=== PATIENT | female | born 1960 | race Caucasian/White ===

== ENCOUNTER 2022-04-07 12:40 | Emergency (ER) | payer OTHER, SELFPAY ==
[2022-04-07] VITALS (14 sets, daily range): BP systolic 115–139; BP diastolic 77–89; PULSE 69–89; RESP 14–20; TEMP 36.3; O2SAT 96–100
--- NOTE | ~2022-04-07 | XR_ITS ---
EXAMINATION: XR chest 2V DATE: 04/07/2022 16:07 INDICATION: Back pain and 4 days of fever TECHNIQUE: PA and lateral views of the chest were obtained. COMPARISON: None FINDINGS: The lungs are clear with no focal airspace opacities, pulmonary edema, pleural effusion or pneumothor ax. The cardiomediastinal silhouette is normal. The thoracic kyphosis with minimal anterior wedging o f a couple mid thoracic vertebral bodies and mild to moderate spondylosis. IMPRESSION: 1. No acute cardiopulmonary disease. Reviewed, dictated and finalized at location A.
--- NOTE | ~2022-04-07 | US_ITS ---
US abdomen limited DATE: 04/07/2022 14:18 INDICATION: Right upper quadrant abdominal pain, nausea, fever TECHNIQUE: Real-time imaging of liver, pancreas, gallbladder COMPARISON: None FINDINGS: There is an approximately 1.2 x 1.7 cm hepatic cyst. No other hepatic space-occupying mass lesion is evident. Normal hepatopedal portal venous flow direction. There are multiple up to approximately 5 mm gallbladder wall polyps no gallbladder wall thickening, g allstones or pericholecystic fluid collection. Negative sonographic Mcfadden's sign. The common bile duct measures 4 mm, normal. No pancreatic mass lesion or ductal dilatation. IMPRESSION: Multiple 5 mm or smaller gallbladder polyps. Consider 6 month follow-up gallbladder ultra sound examination Reviewed, dictated and finalized at [facility]. Reviewed, dictated and finalized at location B. IMPRESSION: Multiple 5 mm or smaller gallbladder polyps. Consider 6 month follo w-up gallbladder ultrasound examination
--- NOTE | 2022-04-07 12:58 | ED.GENADULT ---
HPI - General Adult General Chief complaint: Unspecified Stated complaint: sick since Sunday, fever, upper abd pain Time Seen by Provider: 04/07/22 12:49 History of Present Illness HPI narrative: Patient is a 61-year-old female here for evaluation of right upper abdominal pain for the past 3 days. She states the pain is intermittent in nature, without obvious triggers. She states that she also feels the pain occasionally in her right back. She reports fevers up to 102 at home, but she has not taken any medication for this. Also reports nausea, but no vomiting. No diarrhea, constipation, blood in her stool, chest pain, shortness of breath. No diaphoresis. She has a history of a hysterectomy and 3 C-sections. Related Data Allergies Allergy/AdvReac Type Severity Reaction Status Date / Time ampicillin Allergy Vomiting Verified 04/07/22 13:36 Review of Systems Review of Systems: Gen.: Reports fevers. Eyes: Denies eye pain or visual change ENT: Denies congestion Respiratory: Denies shortness of breath or cough CV: Denies chest pain or palpitations GI: Reports abdominal pain, nausea. Denies emesis or diarrhea denies burning, urgency, frequency or hematuria Musculoskeletal: Denies back pain or muscle pain Neuro: Denies numbness, tingling, weakness or focal weakness Skin: Denies rash Except as documented, all other systems reviewed and negative Exam Narrative: APPEARANCE: Well appearing, no pain in distress, well-nourished. Head: Normocephalic and atraumatic. EYES: PERRLA/EOMI, conjunctivae clear NOSE: No nasal drainage EARS: External ear normal in appearance THROAT: Oropharynx is clear. Mucous membranes are moist. NECK: Supple. No adenopathy, no masses. RESPIRATORY: Airway patent, respirations nonlabored. Clear to auscultation bilaterally, no rales, rhonchi, wheezing. CARDIOVASCULAR: Regular rate and rhythm without murmurs, rubs, or gallops. ABDOMINAL: Tender to palpation in right upper quadrant. Normoactive bowel sounds. Soft, nondistended. No rebound tenderness or guarding. MUSCULOSKELETAL: Extremities are warm and well-perfused. Moves all extremities well. No edema. NEURO: Normal speech. No focal neurologic deficits. SKIN: Skin is warm and dry. No rashes. PSYCHIATRIC: Normal affect/mood.. Course Vital Signs Vital signs: Vital Signs Temperature 97.4 F L 04/07/22 12:43 Pulse Rate 89 04/07/22 12:43 Respiratory Rate 20 04/07/22 12:43 Blood Pressure 120/79 04/07/22 12:43 Pulse Oximetry 100 04/07/22 12:43 Oxygen Delivery Room Air 04/07/22 12:43 Temperature 97.4 F L 04/07/22 12:43 Pulse Rate 69 04/07/22 17:05 Respiratory Rate 14 04/07/22 17:05 Blood Pressure 139/89 04/07/22 17:05 Pulse Oximetry 98 04/07/22 17:05 Oxygen Delivery Room Air 04/07/22 12:43 Medical Decision Making MDM Narrative Medical decision making narrative: 61-year-old female here for evaluation of right upper abdominal/back pain for the past several days associated with some nausea. Here she is nontoxic-appearing with normal vital signs, reported fever at home but patient has been afebrile today without intervention. She was slightly tender in the right upper quadrant; ultrasound reveals multiple small polyps but no cholecystitis or gallstones. Basic labs unremarkable; normal lipase, normal LFTs, white count of 4.4. Urinalysis negative. Obtained a chest x-ray to rule out pneumonia which was also negative. Suspect that the small gallbladder polyps may be causing her pain. On reevaluation her abdomen is soft and nontender. Radiology report recommended follow-up in 6 months, which I feel is reasonable as done by her PCP. She was given return precautions and she voiced understanding. Vital Signs Vital Signs: Vital Signs Temperature 97.4 F L 04/07/22 12:43 Pulse Rate 89 04/07/22 12:43 Respiratory Rate 20 04/07/22 12:43 Blood Pressure 120/79 04/07/22 12:43 Pulse Oximetry 100 04/07/22 12:4
[2022-04-07 13:28] LABS: Basophils Percent Auto 0.2 % (0.2-1.2); Eosinophils Absolute Auto 0.1 K/mm3 (0-0.3); Eosinophils Percent Auto 1.6 % (0-4.4); Hematocrit 41.3 % (37.0-47.0); Hemoglobin 13.8 g/dL (12.0-15.0); Immature Granulocyte Absolute 0.01 K/mm3 (0.00-0.031); Immature Granulocyte Percent A 0.2 % (0-0.5); Lymphocytes Absolute Auto 1.16 K/mm3 (0.9-3.2); Lymphocytes Percent Auto 26.6 % (18.3-44.2); Mean Corpuscular HGB Conc 33.4 g/dl (32-36); Mean Corpuscular Hemoglobin 31.1 pg (26-34); Mean Platelet Volume 10.4 fl (7.4-10.4); Monocytes Absolute Auto 0.7 K/mm3 (0.1-0.6); Monocytes Percent Auto 16.7 % (2.6-8.5); Neutrophils Absolute Auto 2.4 K/mm3 (1.3-6.7); Neutrophils Percent Auto 54.7 % (45.5-73.1); Platelet Count Result 194 k/mm3 (150-375); Red Blood Count 4.44 M/mm3 (4.2-5.4); Red Cell Distribution Width 12.8 % (11.5-14.5); White Blood Count 4.4 K/mm3 (4.5-10.0)
[2022-04-07 13:29] LABS: Appearance Urine Clear (Clear); Bilirubin Urine Negative (Negative); Color Urine Yellow (Yellow); Glucose Urine UA Negative (Negative); Ketones Urine Negative (Negative); Leukocyte Esterase Ur Negative LEU/UL (Negative); Nitrate Urine Negative (Negative); Protein Urine Negative (Negative); Specific Grav Ur >= 1.030 (1.001-1.035); Urobilinogen Urine 0.2 mg/dL (<2.0); pH Urine 5.5 (5.0-9.0)
[2022-04-07] MEDS: SODIUM CHLORIDE 0.9% IV 1,000 ML 999 ML IV CONT (13:30)
[2022-04-07 13:31] LABS: Add Urine Microscopic? YES; Blood Urine Trace-Intact (Negative)
[2022-04-07] MEDS: ONDANSETRON INJ 4 MG/2 ML VIAL IV PUSH (13:31)
[2022-04-07] MEDS: FAMOTIDINE 20 MG/2 ML VIAL IV PUSH (13:31)
[2022-04-07 13:36] LABS: Alanine Aminotransferase 32 U/L (6-35); Albumin Level 4.5 g/dL (3.5-5.1); Alkaline Phosphatase 74 U/L (38-126); Anion Gap 15 mmol/L (8-16); Aspartate Amino Transferase 33 U/L (14-36); Bilirubin,Total 0.6 mg/dL (0.2-1.3); Blood Urea Nitrogen 20 mg/dL (7-17); Calcium 8.6 mg/dL (8.4-10.2); Carbon Dioxide 27 mmol/L (22-30); Chloride 98 mmol/L (98-107); Estimated CRCL calculation 72 ml/min; Estimated Glomerular Filt Rate > 60; Glucose 94 mg/dL (65-110); Lactic Acid Reflex 0.7 mmol/L (0.7-2.0); Lipase 191 U/L (23-300); Potassium 3.8 mmol/L (3.4-5.0); Sodium 140 mmol/L (137-145)
[2022-04-07 13:37] LABS: Mucus Urine Rare /lpf; RBC Urine 0-2 /hpf (0-2); Squamous Epithelial Cell Urine Few /hpf (Few)
--- NOTE | 2022-04-07 13:59 | PC.NURSE ---
Patient off unit to US.
--- NOTE | 2022-04-07 15:05 | PC.NURSE ---
Pt refused xray per Frannie in radiology.
== END 2022-04-07 17:07 | disposition home or self-care (01) ==
PROVIDERS: Physician Assistant; Emergency Provider Emergency Medicine; PCP Emergency Medicine
DX: K82.4 Cholesterolosis of gallbladder (principal)
CPT/HCPCS: 36415; 71046; 76705; 80053; 81001; 83605; 83690; 85025; 96361; 96374; 96375; 99284; J2405; J7030

== ENCOUNTER 2023-08-09 12:36 | Emergency (ER) | payer OTHER, SELFPAY ==
[2023-08-09] VITALS (8 sets, daily range): BP systolic 128–131; BP diastolic 74–83; PULSE 92–176; RESP 15–21; TEMP 36.2; O2SAT 95–98
--- NOTE | ~2023-08-09 | CT_ITS ---
EXAMINATION: CT facial bones w con DATE: 08/09/2023 14:15 INDICATION: Trismus. Left jaw pain. TECHNIQUE: CT of the facial bones and maxillofacial region was performed without intravenous contrast. Sagittal and coronal reconstructions were obtained. Automated exposure control and iterative reconstruction te chnique were employed. The dose-length product was 292.97 mGy-cm. COMPARISON: None. FINDINGS: Bilateral temporomandibular joints are normal. No maxillofacial fractures. Specifically the zygomatic arches, mandible, nasal bones and loss of the orbits and paranasal sinuses are all intact. Minimal m ucosal thickening in the right maxillary, right sphenoid and left frontal sinuses. Small left mastoid effusion. The right mastoid air cells and bilateral middle ear cavities are clear. Dental disease wi th couple root canals and dental restorations as well as absent bilateral maxillary first molars. Andrea ateral orbits are normal. Visualized portion of the brain are unremarkable. Small amount of nonhemody namically significant atherosclerotic calcification at the bilateral carotid bulbs. Maxillofacial sof t tissues are otherwise unremarkable. Cervical spondylosis with severe disc height loss at C5-C6. IMPRESSION: 1. Normal bilateral temporomandibular joints with no acute osseous abnormality. 2. Small left mastoid effusion. Reviewed, dictated and finalized at location A. PER [facility]
--- NOTE | 2023-08-09 13:07 | ED.GENADULT ---
HPI - General Adult General Chief complaint: Dental/Oral Stated complaint: right lower toothache Time Seen by Provider: 08/09/23 12:42 Source: patient Mode of arrival: ambulatory Limitations: no limitations History of Present Illness HPI narrative: This is a 63-year-old female who presents to the ED with chief complaint of right lower toothache. She reports pain is in the right jaw and radiates towards the right ear. She reports swelling in right jaw area as well. She was given antibiotics and Tylenol with codeine 2 days ago and feels she is just continuing to worsen. Reports mild trismus. denies fevers, chills, nausea, vomiting. Related Data Allergies Allergy/AdvReac Type Severity Reaction Status Date / Time ampicillin Allergy Vomiting Verified 08/09/23 12:43 Review of Systems Review of Systems: All systems as dictated in HPI Exam Narrative: GENERAL: Well-appearing, well-nourished, and in no acute distress. HEAD: Normocephalic, atraumatic. EYES: PERRLA and EOMI. ENT: Mild trismus. Mild swelling to the right submandible area. No overlying skin changes. Moderately tender in this area as well. No overt abscess seen or palpated on dental exam. Mild tonsillar erythema hypertrophy. Uvula midline. Floor of the mouth intact. Nares clear, no rhinorrhea or epistaxis. Mucous membranes moist. Oropharynx without tonsillar hypertrophy exudate or other lesions. NECK: Supple. No adenopathy or masses. CHEST: No respiratory distress. Clear to auscultation. No wheezes rales or rhonchi HEART: Slightly tachycardic rate. Regular rhythm.. No murmur heard. Normal peripheral pulses. ABDOMEN: Soft, nontender, nondistended, normal active bowel sounds. MSK: Normal range of motion. No edema. SKIN: Warm, dry, no rash. NEURO: Alert and oriented x3. No focal deficits. PSYCH: Normal mood and affect. Course Course Emergency Course: Re-evaluation at 3:05 p.m: Pain is improved. Heart rate improved. Trismus improved as well. Vital Signs Vital signs: Vital Signs Temperature 97.2 F L 08/09/23 12:40 Pulse Rate 126 H 08/09/23 12:40 Respiratory Rate 17 08/09/23 12:40 Blood Pressure 128/74 01/04/24 12:40 Pulse Oximetry 98 08/09/23 12:40 Oxygen Delivery Room Air 08/09/23 12:40 Temperature 97.2 F L 08/09/23 12:40 Pulse Rate 92 08/09/23 15:16 Respiratory Rate 18 08/09/23 15:16 Blood Pressure 131/83 08/09/23 15:16 Pulse Oximetry 96 08/09/23 15:16 Oxygen Delivery Room Air 08/09/23 12:40 Medical Decision Making [facility] Narrative Medical decision making narrative: This is a 63-year-old female who presents to the ED with chief complaint of right lower toothache. She was started on clindamycin recently and feels like she is getting worse. Vitals show initial tachycardia but hemodynamically stable with no fever. Exam shows some swelling to the right lower so and mild trismus. Lab work shows mildly elevated white count of 14 and a normal CMP. CRP slightly elevated at 1.6. Strep test negative. CT facial with IV contrast: 1. Normal bilateral temporomandibular joints with no acute osseous abnormality. 2. Small left mastoid effusion.. Symptoms consistent with dental infection but there is no abscess appreciated on exam. She improved with pain medications here. Vitals normalized with fluids. Is also found later that the lead placement was incorrect and was not picking up good beats and her heart rate stayed normal after new lead placement. Will add on Augmentin for additional coverage and short course of [place] prescribed. Encouraged follow-up with her dentist. She is understanding and agreeable with plan for discharge at this time. Vital Signs Vital Signs: Vital Signs Temperature 97.2 F L 08/09/23 12:40 Pulse Rate 126 H 08/09/23 12:40 Respiratory Rate 17 08/09/23 12:40 Blood Pressure 128/74 08/09/23 12:40 Pulse Oximetry 98 08/09/23 12:40 Oxygen Delivery Room Air
[2023-08-09 13:18] LABS: Basophils Percent Auto 0.3 % (0.2-1.2); Eosinophils Absolute Auto 0.1 K/mm3 (0-0.3); Eosinophils Percent Auto 0.5 % (0-4.4); Hematocrit 46.5 % (37.0-47.0); Hemoglobin 15.2 g/dL (12.0-15.0); Immature Granulocyte Absolute 0.06 K/mm3 (0.00-0.031); Immature Granulocyte Percent A 0.4 % (0-0.5); Lymphocytes Absolute Auto 1.23 K/mm3 (0.9-3.2); Lymphocytes Percent Auto 8.8 % (18.3-44.2); Mean Corpuscular HGB Conc 32.7 g/dl (32-36); Mean Corpuscular Hemoglobin 31.1 pg (26-34); Mean Corpuscular Volume 95.1 fl (80-100); Mean Platelet Volume 9.9 fl (7.4-10.4); Monocytes Absolute Auto 1.6 K/mm3 (0.1-0.6); Monocytes Percent Auto 11.6 % (2.6-8.5); Neutrophils Percent Auto 78.4 % (45.5-73.1); Platelet Count Result 299 k/mm3 (150-375); Red Blood Count 4.89 M/mm3 (4.2-5.4); Red Cell Distribution Width 12.9 % (11.5-14.5)
[2023-08-09] MEDS: MORPHINE SULFATE (*CRX) 4 MG/ML INJ IV PUSH (13:19)
[2023-08-09] MEDS: SODIUM CHLORIDE 0.9% IV 1,000 ML 999 ML IV CONT (13:19)
--- NOTE | 2023-08-09 13:33 | ECG_ITS ---
Measurements Intervals [place] Rate: 95 P: 52 OR: 137 QRS: -2 QRSD: 72 T: 16 QT: 327 QTc: 411 Interpretive Statements SINUS RHYTHM LOW QRS VOLTAGE IN PRECORDIAL LEADS BASELINE ARTIFACT- I, III BORDERLINE ECG NO PREVIOUS ECG AVAILABLE FOR COMPARISON Electronically Signed On 08-09-2023 13:52:41 [employer] by Parth Fernandez D.O.
[2023-08-09 13:35] LABS: Alanine Aminotransferase 37 U/L (6-35); Albumin Level 4.8 g/dL (3.5-5.1); Alkaline Phosphatase 95 U/L (38-126); Anion Gap 10 mmol/L (8-16); Aspartate Amino Transferase 35 U/L (14-36); Bilirubin,Total 0.7 mg/dL (0.2-1.3); Blood Urea Nitrogen 13 mg/dL (7-17); CRP 1.6 mg/dL (<1.0); Calcium 10.4 mg/dL (8.4-10.2); Carbon Dioxide 28 mmol/L (22-30); Chloride 99 mmol/L (98-107); Estimated CRCL calculation 77 ml/min; Estimated Glomerular Filt Rate > 60; Glucose 114 mg/dL (65-110); Potassium 4.6 mmol/L (3.4-5.0); Sodium 137 mmol/L (137-145)
[2023-08-09 14:16] LABS: Strep Group A RT-PCR NOT DETECTED (Negative)
== END 2023-08-09 15:18 | disposition home or self-care (01) ==
PROVIDERS: Emergency Provider Physician Assistant; PCP Emergency Medicine
DX: K04.7 Periapical abscess without sinus (principal)
CPT/HCPCS: 36415; 70487; 80053; 85025; 86140; 87651; 93005; 96361; 96374; 99284; J2270; J7030; Q9967